=== PATIENT | male | born 2000 | race Caucasian/White ===

== ENCOUNTER 2022-12-18 01:17 | Emergency (ER) | payer BC ==
[~2022-12-18] VITALS: Ht 190.5 cm; Wt 72.7 kg
[2022-12-18 01:21] VITALS: BP 134/94; PULSE 87; RESP 16; TEMP 98.4; O2SAT 97
[2022-12-18] MEDS ORDERED: acetaminophen 325mg tablet PO ONE (03:43)
== END 2022-12-18 04:28 | disposition home or self-care (01) ==
LOC: ER 01:18
DX: S60.111A Contusion of right thumb with damage to nail, initial encounter (principal); X58.XXXA Exposure to other specified factors, initial encounter; Y93.89 Activity, other specified; Y92.89 Other specified places as the place of occurrence of the external cause; Y99.8 Other external cause status
CPT/HCPCS: 11740; 73140; 99283; 99284